=== PATIENT | male | born 1965 | race Caucasian/White ===

== ENCOUNTER 2020-01-01 21:52 | Inpatient (IN) | payer BC, OTHER ==
[~2020-01-01] VITALS: Ht 177.8 cm; Wt 102.2 kg
--- NOTE | 2020-01-01 22:15 | NUR ---
PT TRANSFERED TO ED FROM [facility]. PT HAS NEW ONSET CHF, LOWER LEGS SWOLLEN, REPORTS SOB X4 WEEKS. PT DENIES CP. IV PLACED BY , ALL MONITORING APPLIED, CALL LIGHT WITHIN REACH, ALL SAFETY MEASURES IN PLACE.
[2020-01-01] MEDS ORDERED: METO10TA82 PO (22:25)
[2020-01-01] MEDS ORDERED: OXYC-307 PO (22:25)
[2020-01-01] MEDS ORDERED: ESOM40SU PO (22:25)
[2020-01-01] MEDS ORDERED: FEXO180T72 PO (22:25)
[2020-01-01] MEDS ORDERED: ASCO500C10 PO (22:25)
[2020-01-01] MEDS ORDERED: HYDR-36 PO (22:25)
[2020-01-01] MEDS ORDERED: OMEG1CAP6 PO (22:25)
[2020-01-01] MEDS ORDERED: SODIUM CHLORIDE FLUSH 10ML SYR IVF ONE (22:30)
[2020-01-01] MEDS ORDERED: SIMV80TA18 PO (22:42)
[2020-01-01] MEDS ORDERED: LISI-167 PO (22:42)
[2020-01-01] MEDS ORDERED: ALLO300T PO (22:42)
[2020-01-01] MEDS ORDERED: ASPI-647 PO (22:42)
[2020-01-01 22:45] LABS: TROPONIN I 0.037 ng/mL (0.000-0.045)
--- NOTE | 2020-01-01 23:33 | NUR ---
PT AMBUALTED TO BR WITH STEADY GAIT.
[2020-01-02] MEDS ORDERED: SODIUM CHLORIDE FLUSH 10ML SYR IVF PRN
[2020-01-02] MEDS ORDERED: POLYETHYLENE GLYCOL 17 GM PACKET PO PRN (00:30)
[2020-01-02] MEDS ORDERED: BISACODYL 10 MG SUPP PR PRN (00:30)
[2020-01-02] MEDS ORDERED: HYDROcodone/APAP 10/325 MG TABLET PO PRN (00:30)
[2020-01-02] MEDS ORDERED: ONDANSETRON ODT 4 MG PO PRN (00:30)
[2020-01-02 01:10] VITALS: BP 123/89
[2020-01-02 02:08] VITALS: BP 123/89
[2020-01-02 05:36] LABS: BASOPHILS # (AUTO) 0.02 x10^3/uL (0-0.1); BASOPHILS % (AUTO) 0 % (0-1); EOSINOPHILS # (AUTO) 0.26 x10^3/uL (0-0.4); EOSINOPHILS % (AUTO) 3 % (1-7); LYMPHOCYTES # (AUTO) 1.85 x10^3/uL (1-3.4); LYMPHOCYTES % (AUTO) 19 % (22-44); MD NO; MEAN CORPUSCULAR HEMOGLOBIN 34.1 pg (27.5-34.5); MEAN CORPUSCULAR HGB CONC 33.3 g/dL (33.2-36.2); MEAN CORPUSCULAR VOLUME 102.5 fL (81-97); MEAN PLATELET VOLUME 8.1 fL (7.4-10.4); MONOCYTES # (AUTO) 0.78 x10^3/uL (0.2-0.8); MONOCYTES % (AUTO) 8 % (2-9); NEUTROPHILS # (AUTO) 6.85 x10^3/uL (1.8-6.8); NEUTROPHILS % (AUTO) 70 % (42-75); PLATELET COUNT 284 x10^3/uL (130-400); RED BLOOD COUNT 3.73 x10^6/uL (4.38-5.82)
[2020-01-02 05:44] LABS: ALBUMIN 3.4 g/dL (3.4-5.0); ANION GAP 9 mmol/L (5-15); CALCIUM 8.5 mg/dL (8.5-10.1); CHLORIDE 101 mmol/L (98-107)
[2020-01-02 05:51] LABS: ALANINE AMINOTRANSFERASE 121 U/L (12-78); ALKALINE PHOSPHATASE 118 U/L (45-117); CREATININE 1.27 mg/dL (0.7-1.3); TOTAL PROTEIN 7.7 g/dL (6.4-8.2); TROPONIN I 0.036 ng/mL (0.000-0.045)
[2020-01-02] MEDS: HEPARIN 5,000 UNITS/ML, 1ML SQ SCH ×3 (06:15→20:56)
[2020-01-02] MEDS: CARVEDILOL 3.125 MG TABLET PO SCH ×2 (06:15→18:12)
[2020-01-02 07:15] VITALS: BP 112/77
[2020-01-02] MEDS: FUROSEMIDE 40 MG/4 ML IV SCH ×2 (08:27→18:12)
[2020-01-02] MEDS: ASCORBIC ACID 500 MG TABLET PO SCH (08:27)
[2020-01-02] MEDS: SENNA/DOCUSATE TABLET PO SCH (08:27)
[2020-01-02] MEDS: ASPIRIN 325 MG TABLET EC PO SCH ×2 (08:27→20:52)
[2020-01-02] MEDS: LORATADINE 10 MG TABLET PO SCH (08:28)
[2020-01-02] MEDS: LISINOPRIL 40 MG TABLET PO SCH (08:28)
[2020-01-02] MEDS: ALLOPURINOL 300 MG TABLET PO SCH (08:28)
[2020-01-02] MEDS: PANTOPROZOLE 40MG TABLET PO SCH (08:28)
[2020-01-02] MEDS: SODIUM CHLORIDE FLUSH 10ML SYR IVF SCH ×2 (08:30→20:52)
[2020-01-02] MEDS: OMEGA-3/FISH OIL CAPSULE PO SCH (08:30)
[2020-01-02] MEDS ORDERED: METOCLOPRAMIDE 10MG TABLET PO SCH (09:00)
[2020-01-02 15:33] VITALS: BP 116/74
[2020-01-02] MEDS: METOCLOPRAMIDE 10MG TABLET PO SCH (16:00)
[2020-01-02 19:39] VITALS: BP 115/70
[2020-01-02] MEDS ORDERED: SIMVASTATIN 40 MG TABLET PO SCH (21:00)
[2020-01-03 00:45] VITALS: BP 105/78
[2020-01-03 05:04] LABS: BASOPHILS # (AUTO) 0.03 x10^3/uL (0-0.1); BASOPHILS % (AUTO) 0 % (0-1); EOSINOPHILS # (AUTO) 0.34 x10^3/uL (0-0.4); EOSINOPHILS % (AUTO) 4 % (1-7); LYMPHOCYTES # (AUTO) 1.99 x10^3/uL (1-3.4); LYMPHOCYTES % (AUTO) 26 % (22-44); MD NO; MEAN CORPUSCULAR HEMOGLOBIN 34.1 pg (27.5-34.5); MEAN CORPUSCULAR HGB CONC 32.7 g/dL (33.2-36.2); MEAN CORPUSCULAR VOLUME 104.1 fL (81-97); MEAN PLATELET VOLUME 8.2 fL (7.4-10.4); MONOCYTES # (AUTO) 0.58 x10^3/uL (0.2-0.8); MONOCYTES % (AUTO) 8 % (2-9); NEUTROPHILS # (AUTO) 4.72 x10^3/uL (1.8-6.8); NEUTROPHILS % (AUTO) 62 % (42-75); PLATELET COUNT 256 x10^3/uL (130-400); RED BLOOD COUNT 3.63 x10^6/uL (4.38-5.82)
[2020-01-03 05:14] LABS: ANION GAP 7 mmol/L (5-15); CALCIUM 8.6 mg/dL (8.5-10.1); CHLORIDE 101 mmol/L (98-107); CREATININE 1.42 mg/dL (0.7-1.3)
[2020-01-03] MEDS: HEPARIN 5,000 UNITS/ML, 1ML SQ SCH ×2 (05:46→14:00)
[2020-01-03] MEDS: METOCLOPRAMIDE 10MG TABLET PO SCH ×2 (07:00→11:00)
[2020-01-03 07:14] VITALS: BP 106/74
[2020-01-03] MEDS ORDERED: MAGNESIUM SULFATE PMX 2GM/50ML 50 ML IV ONE (08:00)
[2020-01-03] MEDS: FUROSEMIDE 40 MG/4 ML IV SCH (08:09)
[2020-01-03] MEDS: ASCORBIC ACID 500 MG TABLET PO SCH (09:15)
[2020-01-03] MEDS: LISINOPRIL 40 MG TABLET PO SCH (09:15)
[2020-01-03] MEDS: OMEGA-3/FISH OIL CAPSULE PO SCH (09:16)
[2020-01-03] MEDS: CARVEDILOL 3.125 MG TABLET PO SCH (09:16)
[2020-01-03] MEDS: SENNA/DOCUSATE TABLET PO SCH (09:16)
[2020-01-03] MEDS: SODIUM CHLORIDE FLUSH 10ML SYR IVF SCH (09:16)
[2020-01-03] MEDS: ALLOPURINOL 300 MG TABLET PO SCH (09:16)
[2020-01-03] MEDS: PANTOPROZOLE 40MG TABLET PO SCH (09:16)
[2020-01-03] MEDS: LORATADINE 10 MG TABLET PO SCH (09:16)
[2020-01-03] MEDS: ASPIRIN 325 MG TABLET EC PO SCH (09:16)
[2020-01-03 09:19] VITALS: BP 116/82
[2020-01-03] MEDS ORDERED: SPIRONOLACTONE 25 MG TABLET PO SCH (10:30)
[2020-01-03 13:18] VITALS: BP 109/76
[2020-01-03] MEDS ORDERED: CARV3.1212 PO (13:48)
[2020-01-03] MEDS ORDERED: LISI-170 PO (13:48)
[2020-01-03] MEDS ORDERED: SPIR25TA PO (13:48)
[2020-01-04] MEDS ORDERED: LISINOPRIL 40 MG TABLET PO SCH (09:00)
[2020-01-04] MEDS ORDERED: LISINOPRIL 20 MG TABLET PO SCH (09:00)
== END 2020-01-03 15:05 | disposition home or self-care (01) | DRG 291 ==
LOC: EDSEX 21:52 → ED 22:20 → EDIP 01-02 00:50 → 5SO 01-02 00:51 → DCLOUNGE 01-03 14:55
PROVIDERS: ADMIT Hospitalist; ATTEND Family Medicine
DX: I11.0 Hypertensive heart disease with heart failure (principal); I50.21 Acute systolic (congestive) heart failure; L03.116 Cellulitis of left lower limb; D75.89 Other specified diseases of blood and blood-forming organs; E78.5 Hyperlipidemia, unspecified; I07.1 Rheumatic tricuspid insufficiency; K21.9 Gastro-esophageal reflux disease without esophagitis; K31.84 Gastroparesis; Z96.612 Presence of left artificial shoulder joint; Z96.643 Presence of artificial hip joint, bilateral; M1A.9XX0 Chronic gout, unspecified, without tophus (tophi); Z80.8 Family history of malignant neoplasm of other organs or systems; Z82.3 Family history of stroke; Z79.899 Other long term (current) drug therapy; Z80.0 Family history of malignant neoplasm of digestive organs; Z79.82 Long term (current) use of aspirin; Z88.8 Allergy status to other drugs, medicaments and biological substances
CPT/HCPCS: 36415; 80053; 80069; 82607; 83735; 84484; 85025; 93005; 93306; 93970; G0378; J1644; J1940; J3475